=== PATIENT | male | born 1935 | race Caucasian/White ===

== ENCOUNTER 2018-03-12 12:33 | Inpatient (IN) ==
[2018-03-12] MEDS ORDERED: NS 1,000 ML IV ONE ×2 (13:18→13:51)
[2018-03-12] MEDS ORDERED: MORPHINE IV ONE ×2 (13:18→16:37)
[2018-03-12] MEDS ORDERED: ZOFRAN IV ONE (13:18)
[2018-03-12] MEDS ORDERED: ROCEPHIN 1 GM in NS 50 ML IV ONE (13:20)
--- NOTE | 2018-03-12 13:37 | Diag Imaging Result Doc PS360 ---
EXAM: CHEST-PORTABLE INDICATION: fever TECHNIQUE: One view COMPARISON: 06/08/2017 FINDINGS: Lung volumes are low. The lungs appear to be grossly clear. There is no discrete pleural fluid collection or pneumothorax. The cardiomediastinal silhouette and central vasculature are grossly unremarkable. IMPRESSION: Low lung volumes but no definite acute chest pathology, otherwise, by plain radiograph. Electronically signed by Shon Corona 03/12/2018 1:35 PM
[2018-03-12 13:40] LABS: BASO# 0.08 X1000 (0.0-0.2); BASO% 0.5 % (0.0-0.8); EOS# 0.03 X1000 (0.0-0.7); EOS% 0.2 % (0.0-10.0); HEMATOCRIT 41.6 % (42.0-52.0); HEMOGLOBIN 13.7 g/dL (14.0-18.0); IMM GRAN# 0.02 X1000 (0.0-0.04); IMM GRAN% 0.1 % (0.0-0.5); LYMPH# 0.49 X1000 (1.2-3.4); LYMPH% 2.8 % (20.5-51.1); MCH 29.8 PG (27-31); MCHC 32.9 g/dL (33-37); MCV 90.6 FL (81-99); MONO# 0.86 X1000 (0.11-0.59); MONO% 4.9 % (1.7-9.3); MPV 11.9 FL (7.4-10.4); NEUT# 15.98 X1000 (1.4-6.5); NEUT% 91.5 % (42.2-75.2); PLT 238 X1000 (130-400); RBC 4.59 XMIL (4.7-6.1); RDW 14.7 % (11.5-14.5); WBC 17.46 X1000 (4.8-10.8)
[2018-03-12 13:50] LABS: AGAP 16; ALB/GLOB RATIO 1.5; ALBUMIN 4.2 g/dL (3.5-5.0); ALKALINE PHOSPHATASE 105 U/L (32-122); BUN 17 mg/dL (8-22); CALCIUM 9.8 mg/dL (8.8-10.2); CHLORIDE 101 mmol/L (98-107); COSMO 290; CREATININE 1.1 mg/dL (0.7-1.2); ESTIMATED GFR > 60; GLUCOSE 168 mg/dL (70-104); GOT 38 U/L (10-34); GPT 25 U/L (10-44); POTASSIUM 4.2 mmol/L (3.5-5.1); SODIUM 143 mmol/L (136-145); TCO2 26 mmol/L (25-35); TOTAL BILIRUBIN 1.49 mg/dL (0.20-1.00)
[2018-03-12] MEDS ORDERED: MORPHINE ONE (14:47)
[2018-03-12 15:01] LABS: URINE SOURCE CLEAN CATCH
[2018-03-12 15:11] LABS: BILIRUBIN URINE NEGATIVE (NEGATIVE); BLOOD URINE NEGATIVE (NEGATIVE); COLOR YELLOW; GLUCOSE URINE TRACE mg/dL (NEGATIVE); KETONE URINE NEGATIVE (NEGATIVE); LEUKOCYTES URINE TRACE (NEGATIVE); NITRITE URINE NEGATIVE (NEGATIVE); PROTEIN URINE TRACE mg/dL (NEGATIVE); SP GRAVITY URINE 1.019; TURBIDITY URINE CLEAR (CLEAR); UR EPITHELIAL CELLS <10 /HPF (<10); URINE BACTERIA NEGATIVE /HPF; URINE RBC <10 /HPF (<10); URINE WBC <10 /HPF (<10); UROBILINOGEN URINE NORMAL (NORMAL)
[2018-03-12 15:14] LABS: INR 0.91
--- NOTE | 2018-03-12 15:18 | Diag Imaging Result Doc PS360 ---
EXAM: CT RENAL STONE SEARCH INDICATION: flank pain, fever, dysuria TECHNIQUE: This exam was performed using automated exposure control, adjustment of mA or kV according to patient size, and/or use of iterative reconstruction technique. COMPARISON: 10/23/2015 FINDINGS: There is a calcified granuloma in the right middle lobe. There is mild subsegmental atelectasis at the lung bases. There has been a previous cholecystectomy. The liver is grossly unremarkable. 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 There are stable metallic clips at the tail of pancreas. The pancreas appears atrophic. There are a few small shotty peripancreatic lymph nodes that are similar to the previous study. The adrenal glands are unremarkable. There is a stable simple left renal cyst. There are no renal or ureteral stones and there is no hydronephrosis. The kidneys are grossly unremarkable, otherwise. The urinary bladder appears normal as imaged. There are prostatic calcifications. There is advanced sigmoid colonic diverticulosis but there is no evidence of diverticulitis. There is abundant stool in the colon suggesting constipation. The appendix is normal. The remainder of the GI tract is essentially unremarkable. There are degenerative changes throughout the spine and at the left hip. IMPRESSION: 1.No renal or ureteral stones and no evidence of acute obstructive uropathy. 2.Uncomplicated diverticulosis coli. 3.Abundant stool throughout the colon suggesting possible constipation. 4.Other external/nonacute findings detailed above. Electronically signed by Shon Corona 03/12/2018 3:16 PM
[2018-03-12] MEDS ORDERED: LEVAQUIN 750 MG/D5W 750 MG/150 ML IVPB IV ONE (15:46)
[2018-03-12] MEDS ORDERED: FLAGYL 500 MG/NS 500 MG/100 ML IVPB IV ONE (15:54)
--- NOTE | 2018-03-12 16:00 | PROVIDER DOCUMENTATION ---
This chart was entered by Loyda Carmona Scribe, acting as scribe for Neto Price MD. HPI-General Adult - General Chief Complaint: General Adult Stated Complaint: WEAKNESS,LOWER ABD PAIN,SHAKING Time Seen by Provider: 03/12/18 13:08 Source: patient, family Allergies/Adverse Reactions: Patient Allergies Allergy/AdvReac Type Severity Reaction Status Date / Time Penicillins Allergy Intermediate RASH Verified 06/08/17 13:23 Sulfa (Sulfonamide Allergy Intermediate RASH Verified 06/08/17 13:23 Antibiotics) Home Medications: Home Medication List Medication Instructions Recorded Confirmed Last Taken Type Lisinopril 20 mg PO DAILY 12/01/15 10/17/17 10/16/17 08:00 History Metformin HCl [Glucophage] 500 mg PO BID 12/01/15 10/17/17 10/16/17 16:00 History Amlodipine Besylate 5 mg PO DAILY 10/13/17 10/17/17 10/16/17 08:00 History Tamsulosin [Flomax] 0.4 mg PO DAILY 10/13/17 10/17/17 10/16/17 08:00 History - History of Present Illness -Gen Adult Nature of Presenting Problems: 83 y/o male presents to ED with low abdominal pain, low back pain radiating to bilateral posterior thighs, chills, confusion, increased urination, sore throat , dysuria, groin pain, and weakness onset last night and worsening today. Pt also reports sinus issues for approximately 3 weeks. Son of pt is in room and states that he had similar symptoms with urosepsis previously. Pt reports his tremor has also worsened. Pt is alert and oriented. Location of Pain/Injury: reports: abdomen (low), back (low), other (urethral; groin) Pain Radiation: reports: legs (upper) (bilateral) Quality of Pain: reports: aching Severity: reports: moderate Onset/Duration: reports: last night, other (3 weeks ago) Timing: reports: still present, getting worse Context/Activities at Onset: reports: none Modifying Factors: worse with: palpation, urinating Associated Symptoms: reports: back/neck pain (low back), fever/chills, sinus congestion/drainage, weakness, other (low abdominal pain, bilateral posterior thigh pain, confusion, dysuria, increased urination, sore throat, groin pain, worsening tremor) Similar Symptoms Previously?: Yes (with urosepsis) Recently seen or treated by another doctor?: No Review of Systems - Adult - REVIEW OF SYSTEMS - ADULT Constitutional: reports: chills, other (confusion). denies: fever Eyes: reports: no symptoms reported Ears, Nose, Mouth & Throat: reports: sinus problem, throat pain Cardiovascular: denies: chest pain, palpitations Respiratory: denies: cough, shortness of breath Gastrointestinal: reports: abdominal pain (low). denies: diarrhea, nausea, vomiting Genitourinary: reports: dysuria, other (increased urination, groin pain) Musculoskeletal: reports: back pain (low), other (bilateral posterior thigh pain ) Integumentary: reports: no symptoms reported Neurological: reports: tremors (worsening), other (confusion, weakness). denies : dizziness/vertigo, seizure Psychiatric: reports: no symptoms reported Endocrine: reports: no symptoms reported Hematologic/Lymphatic: reports: no symptoms reported Allergic/Immunologic: reports: no symptoms reported All Other Systems: Reviewed and Negative Past History - Adult - PAST MEDICAL HISTORY-ADULT Review of Records: reports: Old Records Reviewed, Nursing Assessment Review, Medications Reviewed Major Childhood Illnesses: reports: denies history Cardiovascular: reports: HTN Respiratory: reports: denies history Gastrointestinal: reports: diverticulosis, other (pancreatic cancer) Obstetrical/Gynecological: reports: denies history Genitourinary: reports: denies history Musculoskeletal: reports: denies history Neurological: reports: denies history Psychiatric: reports: anxiety Endocrine/Immune: reports: Diabetes Other Conditions: reports: denies history, other cancer (skin) - PRIOR SURGERIES/PROCEDURES Surgical/Procedure History: reports: cholecystectomy, tonsillectomy, hernia repair - IMMUNIZATION STATUS Childhood Immunizations: See Nurse Assessment Flu Vaccine: See Nurse Assessment - FAMILY HISTORY Family History: reviewed, not pertinent - SOCIAL HISTORY Smoking: quit greater than 1 year Substance Use: none/never Alcohol Use Frequency: never Living Situation: family Physical Exam-General - PHYSICAL EXAM-ADULT Initial Vital Signs Reviewed: Yes - CONSTITUTIONAL General Appearance: appears well, alert, no apparent distress - EYES Eyes: PERRL/EOMI, pink conjunctivae - HEAD, EARS, NOSE, MOUTH & THROAT HENMT: normocephalic/atraumatic, moist mucous membranes, maxillary tenderness - NECK Neck: non-tender, full range of motion - RESPIRATORY Respiratory: chest non-tender, lungs clear, normal breath sounds - CARDIOVASCULAR Cardiovascular: tachycardia - GASTROINTESTINAL (ABDOMEN) Abdominal Exam: normal bowel sounds, non tender, soft - MUSCULOSKELETAL Back Exam: normal inspection, CVA tenderness (bilateral) Extremity: normal range of motion, non-tender, normal gait - SKIN Integumentary: normal color, warm/dry - NEUROLOGIC Neurologic: grossly normal, other (resting tremor) - PSYCHIATRIC Psych/Mental Status: normal mood/affect, normal thought content, normal thought process Progress - PLAN OF CARE/RESULTS Progress/Plan/Lab Results: Vital Signs - 8 hr 03/12/18 12:47 Temperature 99.2 F Pulse Rate 124 H Respiratory Rate 18 Blood Pressure 151/88 O2 Sat by Pulse Oximetry 96 Laboratory Results - last 24 hr 03/12/18 12:58 WBC 17.46 H RBC 4.59 L Hgb 13.7 L Hct 41.6 L MCV 90.6 MCH 29.8 MCHC 32.9 L RDW Std Deviation 14.7 H Plt Count 238 MPV 11.9 H Immature Gran % (Auto) 0.1 Neut % (Auto) 91.5 H Lymph % (Auto) 2.8 L [place] % (Auto) 4.9 Eos % (Auto) 0.2 Baso % (Auto) 0.5 Immature Gran # (Auto) 0.02 Neut # (Auto) 15.98 H Lymph # (Auto) 0.49 L [place] # (Auto) 0.86 H Eos # (Auto) 0.03 Baso # (Auto) 0.08 Orders Category Date Time Status CHEST-PORTABLE [RAD] Stat Exams 03/12/18 13:[address] RENAL STONE SEARCH [CT] Stat Exams 03/12/18 13:18 Ordered BLOOD CULTURE [BLDCUL] Stat Lab 03/12/18 13:16 Uncollected CBC WITH ELECTRONIC DIFF [HEME] Stat Lab 03/12/18 12:58 Completed COMPREHENSIVE METABOLIC PANEL [CHEM] Stat Lab 03/12/18 12:58 Received INFLUENZA SCREEN A/B Stat Lab 03/12/18 13:17 Uncollected MAGNESIUM [CHEM] Stat Lab 03/12/18 13:17 Uncollected PRO B-NATRIURETIC PEPTIDE Stat Lab 03/12/18 13:17 Uncollected PROTIME WITH INR [COAG] Stat Lab 03/12/18 13:17 Uncollected TROPONIN T Stat Lab 03/12/18 13:17 Uncollected TSH Stat Lab 03/12/18 13:17 Uncollected URINALYSIS W/POSS RFLX CULT [URINALYSIS] Stat Lab 03/12/18 13:17 Uncollected URINALYSIS [URINALYSIS] Stat Lab 03/12/18 12:52 Uncollected 0.9% Sodium Chloride Inj [Ns] 1,000 ml Med 03/12/18 13:18 Active IV 999 mls/hr CefTRIAXONE [Rocephin] 1 gm Med 03/12/18 13:20 Discontinued 0.9% Sodium Chloride Inj [Ns] 50 ml IV NOW Morphine Med 03/12/18 13:18 Discontinued 2 mg IV NOW ONE Ondansetron [Zofran] Med 03/12/18 13:18 Discontinued 4 mg IV NOW ONE Generalized Adult Illness >60 Stat Oth 03/12/18 12:51 Ordered EKG [EKG] Stat Ther 03/12/18 12:52 Ordered Laboratory Tests 03/12/18 03/12/18 12:58 12:58 WBC 17.46 H RBC 4.59 L Hgb 13.7 L Hct 41.6 L MCV 90.6 MCH 29.8 MCHC 32.9 L RDW Std Deviation 14.7 H Plt Count 238 MPV 11.9 H Immature Gran % (Auto) 0.1 Neut % (Auto) 91.5 H Lymph % (Auto) 2.8 L [place] % (Auto) 4.9 Eos % (Auto) 0.2 Baso % (Auto) 0.5 Immature Gran # (Auto) 0.02 Neut # (Auto) 15.98 H Lymph # (Auto) 0.49 L [place] # (Auto) 0.86 H Eos # (Auto) 0.03 Baso # (Auto) 0.08 Sodium 143 Potassium 4.2 Chloride 101 Carbon Dioxide 26 Anion Gap 16 BUN 17 Creatinine 1.1 Estimated GFR/1.73 m2 > 60 BUN/Creatinine Ratio 15 Glucose 168 H Calculated Osmolality 290 Calcium 9.8 Total Bilirubin 1.49 H AST 38 H ALT 25 Alkaline Phosphatase 105 Total Protein 7.0 Albumin 4.2 Globulin 2.8 Albumin/Globulin Ratio 1.5 Laboratory Tests 03/12/18 03/12/18 03/12/18 12:58 12:58 13:00 WBC 17.46 H RBC 4.59 L Hgb 13.7 L Hct 41.6 L MCV 90.6 MCH 29.8 MCHC 32.9 L RDW Std Deviation 14.7 H Plt Count 238 MPV 11.9 H Immature Gran % (Auto) 0.1 Neut % (Auto) 91.5 H Lymph % (Auto) 2.8 L [place] % (Auto) 4.9 Eos % (Auto) 0.2 Baso % (Auto) 0.5 Immature Gran # (Auto) 0.02 Neut # (Auto) 15.98 H Lymph # (Auto) 0.49 L [place] # (Auto) 0.86 H Eos # (Auto) 0.03 Baso # (Auto) 0.08 PT INR Sodium 143 Potassium 4.2 Chloride 101 Carbon Dioxide 26 Anion Gap 16 BUN 17 Creatinine 1.1 Estimated GFR/1.73 m2 > 60 BUN/Creatinine Ratio 15 Glucose 168 H Calculated Osmolality 290 Calcium 9.8 Magnesium Total Bilirubin 1.49 H AST 38 H ALT 25 Alkaline Phosphatase 105 Troponin T Pjy-N-Rgbsuxfdhlo Pept Total Protein 7.0 Albumin 4.2 Globulin 2.8 Albumin/Globulin Ratio 1.5 TSH Urine Source CLEAN CATCH Urine Color YELLOW Urine Turbidity CLEAR Urine pH 6.0 Ur Specific [place] 1.019 Urine Protein TRACE A Ur Glucose (Stick) TRACE Ur Ketones (Stick) NEGATIVE Urine Blood NEGATIVE Urine Nitrite NEGATIVE Urine Bilirubin NEGATIVE Urobilinogen Dipstick NORMAL Urine Leukocytes TRACE A Urine WBC (Auto) <10 Urine RBC (Auto) <10 U Epithel Cells (Auto) <10 Urine Bacteria (Auto) NEGATIVE 03/12/18 03/12/18 03/12/18 14:44 14:44 14:44 WBC RBC Hgb Hct MCV MCH MCHC RDW Std Deviation Plt Count MPV Immature Gran % (Auto) Neut % (Auto) Lymph % (Auto) [place] % (Auto) Eos % (Auto) Baso % (Auto) Immature Gran # (Auto) Neut # (Auto) Lymph # (Auto) [place] # (Auto) Eos # (Auto) Baso # (Auto) PT INR Sodium Potassium Chloride Carbon Dioxide Anion Gap BUN Creatinine Estimated GFR/1.73 m2 BUN/Creatinine Ratio Glucose Calculated Osmolality Calcium Magnesium 1.4 L Total Bilirubin AST ALT Alkaline Phosphatase Troponin T < 0.010 Xaq-S-Atvibjggmno Pept 70 Total Protein Albumin Globulin Albumin/Globulin Ratio TSH Urine Source Urine Color Urine Turbidity Urine pH Ur Specific [place] Urine Protein Ur Glucose (Stick) Ur Ketones (Stick) Urine Blood Urine Nitrite Urine Bilirubin Urobilinogen Dipstick Urine Leukocytes Urine WBC (Auto) Urine RBC (Auto) U Epithel Cells (Auto) Urine Bacteria (Auto) 03/12/18 03/12/18 14:44 14:44 WBC RBC Hgb Hct MCV MCH MCHC RDW Std Deviation Plt Count MPV Immature Gran % (Auto) Neut % (Auto) Lymph % (Auto) [place] % (Auto) Eos % (Auto) Baso % (Auto) Immature Gran # (Auto) Neut # (Auto) Lymph # (Auto) [place] # (Auto) Eos # (Auto) Baso # (Auto) PT 13.0 INR 0.91 Sodium Potassium Chloride Carbon Dioxide Anion Gap BUN Creatinine Estimated GFR/1.73 m2 BUN/Creatinine Ratio Glucose Calculated Osmolality Calcium Magnesium Total Bilirubin AST ALT Alkaline Phosphatase Troponin T Wot-E-Atbeewemnjp Pept Total Protein Albumin Globulin Albumin/Globulin Ratio TSH 1.22 Urine Source Urine Color Urine Turbidity Urine pH Ur Specific [place] Urine Protein Ur Glucose (Stick) Ur Ketones (Stick) Urine Blood Urine Nitrite Urine Bilirubin Urobilinogen Dipstick Urine Leukocytes Urine WBC (Auto) Urine RBC (Auto) U Epithel Cells (Auto) Urine Bacteria (Auto) Result Diagrams: 03/12/18 12:58 03/12/18 12:58 - REASSESSMENT Reassessment #1 Time Reassessed: 15:53 Status: improving (Patient states he feels a lot better. States he knew he had diverticulosis but ate a bunch of nuts 5 days ago.) Reassessment Comment: Although CT showed diverticulosis, there was no contrast , so will treat it - EKG 1 Time of EKG reading by physician:: 12:55 EKG Read and Signed by:: Neto Price EKG Interpretation (*Must complete 3 of following elements*): Abnormal Rate: 113 Rhythm: Sinus tach ST Wave: non-specific ST changes Comments: Early transition. Artifact present. -Dr. Price - XRAY 1 XRAY Study: Chest Impression: Abnormal (FINDINGS: Lung volumes are low. The lungs appear to be grossly clear. There is no discrete pleural fluid collection or pneumothorax. The cardiomediastinal silhouette and central vasculature are grossly unremarkable. IMPRESSION: Low lung volumes but no definite acute chest pathology, otherwise, by plain radiograph. Electronically signed by Shon Corona 03/12/2018 1:35 PM) - CT/MRI 1 CT Study: Renal Stone Impression: Abnormal (FINDINGS: There is a calcified granuloma in the right middle lobe. There is mild subsegmental atelectasis at the lung bases. There has been a previous cholecystectomy. The liver is grossly unremarkable. 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 There are stable metallic clips at the tail of pancreas. The pancreas appears atrophic. There are a few small shotty peripancreatic lymph nodes that are similar to the previous study. The adrenal glands are unremarkable. There is a stable simple left renal cyst. There are no renal or ureteral stones and there is no hydronephrosis. The kidneys are grossly unremarkable, otherwise. The urinary bladder appears normal as imaged. There are prostatic calcifications. There is advanced sigmoid colonic diverticulosis but there is no evidence of diverticulitis. There is abundant stool in the colon suggesting constipation. The appendix is normal. The remainder of the GI tract is essentially unremarkable. There are degenerative changes throughout the spine and at the left hip. IMPRESSION: 1.No renal or ureteral stones and no evidence of acute obstructive uropathy. 2.Uncomplicated diverticulosis coli. 3.Abundant stool throughout the colon suggesting possible constipation. 4.Other external/nonacute findings detailed above. Electronically signed by Shon Corona 03/12/2018 3:16 PM), See EMR Report - CONSULTS/PCP/HOSPITALIST Notification #1 *Consult/PCP/Hospitalist*: Gema Time Discussed: 15:59 Reason/Comments: Admit to [facility] Consult Disposition: Will see in ED Departure - Departure Date of Disposition Decision: 03/12/18 Time of Disposition Decision: 15:56 DIAGNOSIS: Diverticulitis large intestine w/o perforation or abscess w/o bleeding Sepsis Qualifiers: Sepsis type: sepsis due to unspecified organism Qualified Code(s): A41.9 - Sepsis, unspecified organism Disposition: ADMITTED INPATIENT 09 Certified Medical Emergency: Emergent Condition: Fair Referrals and Follow-Ups: Marcelle Moore MD [Primary Care Provider] - - Critical Care Note This patient required my direct & personal management of CC.: No Attestation - Physician/ NILAM Attestation Patient care was provided by Advanced Practice Provider:: No The physician spent face to face time with patient:: Yes Advanced Practice Provider documentation review:: Supervising physician onsite and consulted in the evaluation and care of this patient. The physician did have a face to face encounter with the patient. This chart was documented by the indicated scribe, (Loyda Carmona Scribe) and accurately reflects the services I performed and decisions made by me, Neto Price MD, as attested by the provider's signature.
[2018-03-12] MEDS ORDERED: ZOFRAN IV PRN (16:44)
[2018-03-12] MEDS ORDERED: DULCOLAX PR PRN (16:45)
[2018-03-12] MEDS ORDERED: DULCOLAX PR ONE (16:45)
[2018-03-12] MEDS ORDERED: LACTULOSE PO ONE (16:46)
[2018-03-12] MEDS: NS 1,000 ML IV SCH (17:49)
[2018-03-12] MEDS ORDERED: LEVAQUIN 750 MG/D5W 750 MG/150 ML IVPB IV SCH (18:00)
--- NOTE | 2018-03-12 18:31 | HISTORY AND PHYSICAL ---
DATE OF ADMISSION: 03/12/2018. PRIMARY CARE PHYSICIAN: Marcelle Moore MD. CHIEF COMPLAINT: Abdominal pain. HISTORY OF PRESENT ILLNESS: Mr. Merrick Gage Sr. is an [id number]- male with a medical history of pancreatic cyst with partial pancreatectomy, diabetes mellitus type 2 , diverticulosis, irritable bowel syndrome that alternates between constipation and diarrhea, and hypertension. States that he has lately been having some issues with constipation. His last bowel movement was yesterday. It was hard and small. Then this morning, around 10:00 a.m., he started having some really bad bilateral lower abdominal cramping that would radiate to his back and down his legs. He denied any nausea. He states that he felt like he has had a little bit of hot and cold sweats. Otherwise, no other complaints. We will admit to the medical floor and treat his intractable abdominal pain, his constipation and antibiotics for possible diverticulitis. Laboratory data reveals that he has leukocytosis with a white blood cell count of 17,000. A chest x-ray was clear. Urine was clear. Given the pain, there was a renal CT that was performed. There are no stones or evidence of obstructive uropathy. He does show some diverticulars coli and severe constipation. He is tachycardic as well. He does show some signs of sepsis. A lactate is not available at this time. PAST MEDICAL HISTORY: 1. Pancreatic cyst status post partial pancreatectomy. Apparently the biopsy of the partial pancreas was positive for precancerous cells that Dr. Colindres follows him for. No other chemotherapy or radiation has ever been used. 2. Diabetes mellitus type 2. 3. Hypertension. 4. Seasonal allergies with sinus congestion. 5. Irritable bowel syndrome with alternating between constipation and diarrhea. 6. History of diverticulitis. 7. Anxiety. 8. Anemia. PAST SURGICAL HISTORY: 1. Partial pancreectomy. 2. Splenectomy. 3. Umbilical hernia repair. 4. Skin cancer removal. 5. Cataract surgery. 6. Prostatectomy. 7. Left testicular mass removed and testicle removed which was benign. SOCIAL HISTORY: Denies tobacco, alcohol or illicit drug use. He lives at home with his . He has two daughters who are at the bedside. FAMILY HISTORY: On his mother's side, there was heart disease and diabetes. On the father's side, his father at age 50 of an MVA. He had a brother with stomach cancer and sister with leukemia, and another uncle with leukemia. ALLERGIES: SULFA AND PENICILLIN. HOME MEDICATIONS: Not verified yet, but it looks like: 1. Amlodipine. 2. Lisinopril. 3. Metformin. 4. Flomax. REVIEW OF SYSTEMS: 14 point review of systems was completed and all are negative except for those mentioned above in the HPI. PHYSICAL EXAM: VITAL SIGNS: Temperature 99.2, heart rate 124, respiratory rate 18, blood pressure 151/88 and O2 saturation 96% on room air. He is 5'5" tall and weighs 136 pounds with a BMI of 22.6. GENERAL: Mr. Merrick Gage is hard of hearing, but he is pleasant. He is resting comfortably in bed. HEENT: Normocephalic, atraumatic. Pupils are equal, round and reactive to light. Extraocular movements intact. Mucous membranes are dry. NECK: Trachea is midline. CARDIOVASCULAR: S1, S2. Regular rate and rhythm. No murmurs, rubs or gallops. No lower extremity edema. There are +2 dorsalis and radial pulses. Negative JVD or carotid bruits. PULMONARY: Clear to auscultate bilateral breath sounds. No accessory muscle use or work of breathing noted. GI: Soft. Tender in the left lower quadrant. Positive bowel sounds x4. EXTREMITIES: Moves all extremities equally. Full range of motion. NEUROLOGICAL: Alert and oriented x3. Follows commands. Sensory is intact. SKIN: Warm, dry and intact. LABORATORY DATA: WBC 17,000, hemoglobin 13, hematocrit 41, and platelet count 238. INR is 0.91. Sodium 143, potassium 4.2, BUN 17, creatinine 1.1, glucose 168, calcium 9.8, magnesium 1.4, bilirubin 1.49, AST 38, ALT 25, troponin less than 0.01, proBNP 70, albumin 4.2 , lipase 13, and TSH 1.22. Urinalysis shows trace protein, trace leukocytes. Otherwise negative. IMAGING: Chest x-ray is clear. Renal CT showed no renal or ureteral stones and no evidence of acute obstructive uropathy. Uncomplicated diverticulosis. Abundance of stool throughout the colon suggesting possible constipation. ASSESSMENT AND PLAN: 1. Abdominal pain. Likely secondary to constipation or diverticulitis. He will be on clear liquids. [place] for pain. He got a one time dose of morphine. 2. Leukocytosis with signs of sepsis. Lactate is not available. He is tachycardic. He did get 1 liter of IV fluids. Per imaging, he could possibly have diverticulitis, so he had one dose of Rocephin, but he is getting Flagyl and Levaquin scheduled. We will follow up on the lactate as well. 3. Constipation. We will do MiraLAX daily. We will give him a one time dose of Lactulose and one time dose of Bisacodyl suppository. We will start him on Brenda-Colace, 2 tablets twice daily. 4. Precancerous pancreatic cells of the sample of the pancreectomy that Dr. Colindres follows him for. No concerns at this time. 5. Diabetes mellitus type 2. We will do pattern blood glucose and sliding scale insulin. 6. Hypertension. Once home medications are verified, we will resume. 7. Deep vein thrombosis prophylaxis with SCDs. Dictated by ROSS Maddox for Vega Talbot MD cc: ROSS Maddox MD Marlin D. Gill, MD I have seen and examined patient today in the ER. Family members were present. I have reviewed his labs and imagining studies. Mr Gage present with abdomen pain, WBC is elevated abd CT scan shows diverticulosis but no inflammation. He has been treated for diverticulitis in the past. He is constipated. I agree with the above HPI and the plan reflects my opinion discussed with the RESTAURANT SERVICE MANAGER. MARK
[2018-03-12] MEDS: NORCO-7.5 PO PRN (18:50)
[2018-03-12] MEDS: PRILOSEC PO SCH (20:41)
[2018-03-12] MEDS: PERICOLACE PO SCH (20:42)
[2018-03-12] MEDS: HUMULIN R SUBQ SCH (21:40)
[2018-03-13] MEDS: FLAGYL 500 MG/NS 500 MG/100 ML IVPB IV SCH ×3 (00:32→13:49)
[2018-03-13] MEDS: NS 1,000 ML IV SCH ×4 (05:03→17:44)
[2018-03-13] MEDS: HUMULIN R SUBQ SCH ×4 (06:28→21:44)
[2018-03-13 06:50] LABS: BASO# 0.06 X1000 (0.0-0.2); BASO% 0.5 % (0.0-0.8); EOS# 0.04 X1000 (0.0-0.7); EOS% 0.3 % (0.0-10.0); HEMATOCRIT 36.8 % (42.0-52.0); IMM GRAN# 0.02 X1000 (0.0-0.04); IMM GRAN% 0.2 % (0.0-0.5); LYMPH# 0.88 X1000 (1.2-3.4); LYMPH% 7.3 % (20.5-51.1); MCH 29.9 PG (27-31); MCHC 32.6 g/dL (33-37); MCV 91.8 FL (81-99); MONO# 1.03 X1000 (0.11-0.59); MONO% 8.6 % (1.7-9.3); MPV 11.8 FL (7.4-10.4); NEUT# 9.95 X1000 (1.4-6.5); NEUT% 83.1 % (42.2-75.2); PLT 216 X1000 (130-400); RBC 4.01 XMIL (4.7-6.1); RDW 14.9 % (11.5-14.5); WBC 11.98 X1000 (4.8-10.8)
[2018-03-13 06:57] LABS: INR 1.18; PROTIME 15.9 Seconds (11.0-16.0)
[2018-03-13] MEDS: TYLENOL PO PRN ×2 (06:57→15:53)
[2018-03-13 06:58] LABS: PTT 36.6 Seconds (22.3-41.8)
--- NOTE | 2018-03-13 07:18 | EKG Report ---
Test Performed on : 03/12/2018 12:55:59 PM Test Reason : WEAKNESS Blood Pressure : / mmHG Vent. Rate : 113 BPM Atrial Rate : 113 BPM P-R Int : 144 ms QRS Dur : 070 ms QT Int : 320 ms P-R-T Axes : 046 -14 -10 degrees QTc Int : 438 ms Sinus tachycardia. Nonspecific ST and T wave abnormality Abnormal ECG When compared with ECG of 13-OCT-2017 13:52, Vent. rate has increased BY [address] now depressed in Inferior leads ST now depressed in Anterolateral leads Nonspecific T wave abnormality now evident in Inferior leads T wave inversion now evident in Anterior leads Unconfirmed Result
[2018-03-13 07:42] LABS: AGAP 11; ALB/GLOB RATIO 1.3; ALBUMIN 3.3 g/dL (3.5-5.0); ALKALINE PHOSPHATASE 85 U/L (32-122); BUN 12 mg/dL (8-22); CALCIUM 8.9 mg/dL (8.8-10.2); CHLORIDE 105 mmol/L (98-107); COSMO 285; ESTIMATED GFR > 60; GLUCOSE 130 mg/dL (70-104); GOT 55 U/L (10-34); GPT 42 U/L (10-44); MAGNESIUM 1.5 mg/dL (1.5-2.7); POTASSIUM 4.2 mmol/L (3.5-5.1); SODIUM 142 mmol/L (136-145); TCO2 26 mmol/L (25-35); TOTAL BILIRUBIN 1.27 mg/dL (0.20-1.00); TOTAL PROTEIN 5.9 g/dL (6.3-8.3)
--- NOTE | 2018-03-13 08:43 | Diag Imaging Result Doc PS360 ---
EXAM: US ABDOMEN-COMPLETE 03/13/2018 HISTORY: abd pain TECHNIQUE: Abdominal ultrasound COMMENT: The visualized portions of the aorta and inferior vena cava are within normal limits. There is antegrade flow in the portal vein. Common bile duct measures less than 7 mm. The liver is slightly hyperechoic. There is a cyst arising from the mid left kidney measuring 4.3 cm in greatest dimension. There is no evidence of hydronephrosis. The gallbladder surgically absent. The pancreas is not identifiable and by history there has been partial pancreatectomy. The spleen is surgically absent. There are no abnormal fluid collections. IMPRESSION: Mild hepatic steatosis. Left renal cyst. Electronically signed by Luis Tate 03/13/2018 8:41 AM
[2018-03-13] MEDS: MIRALAX PO SCH (09:43)
[2018-03-13] MEDS: PRILOSEC PO SCH ×2 (09:43→21:44)
[2018-03-13] MEDS: PERICOLACE PO SCH ×2 (09:43→21:44)
--- NOTE | 2018-03-13 15:44 | PROGRESS NOTE ---
DATE: 03/13/2018 SUBJECTIVE: This morning Mr. Gage refers to be doing a whole lot better. Abdominal pain is improved. The patient has had a bowel movement yesterday. There is also some another one documented for this morning. He said he feels a whole lot better. OBJECTIVE: Vital Signs: Blood pressure is 134/65, pulse is 66, respirations 14, temperature is 98.2. General: Mr. Gage is an 83-year-old gentleman. He is in bed. He is not in any cardiopulmonary distress. HEENT: Mucosa is pink and moist. Anicteric. Acyanotic. Neck: Supple. Chest: Clear to auscultation. No crepitations. No rhonchi. Cardiovascular: Regular rate and rhythm. Abdomen: Soft, nontender. There was not any hepatosplenomegaly. Bowel sounds were present. Extremities: No pedal edema. Central Nervous System: Patient is awake, alert and oriented. LABORATORY DATA: WBC is down to 11.98, hemoglobin is 12.0, platelet count of 216,000. Chemistry is also reviewed, completely normal. ASSESSMENT: 1. Abdominal pain associated with elevated WBC. A CT scan did show diverticulosis. There is a concern for possible diverticulitis that has not been picked up. The patient was started on antibiotics, seems to be improving very well this morning. We are going to continue with the current management. We will get the patient a GI soft diet and see if he is able to tolerate. I will continue with bowel regimen. 2. Constipation. This could as well be causing some of his admission abdominal pain. He is currently on bowel regimen. He has had two bowel movements. He is feeling a lot better. We will start him on a GI soft diet and see if he is able to tolerate this. 3. Diabetes mellitus type 2, stable. 4. Hypertension, controlled. 5. Clinical volume depletion. The patient has been fully resuscitated with fluid. The patient has been on IV fluids, has been resuscitated very well. I will cut down the fluids to only 85 mL/h for maintenance. PLAN: So, in general, I feel Mr. Gage is doing a lot better. I think he has probably had constipation with reactive leukocytosis. However, underlying diverticulitis is a highly possibility. He is going to continue with the current antibiotic coverage. I put him on GI soft diet. If he is able to tolerate, we will be able to discharge him tomorrow. cc: Vega Talbot MD
[2018-03-13] MEDS: DEBROX OTIC DROPS RIGHT EAR SCH ×3 (15:53→21:47)
[2018-03-13] MEDS: LEVAQUIN 750 MG/D5W 750 MG/150 ML IVPB IV SCH ×3 (18:07→21:47)
[2018-03-13] MEDS: CLARITIN PO SCH (21:44)
[2018-03-14] MEDS: FLAGYL 500 MG/NS 500 MG/100 ML IVPB IV SCH ×3 (00:43→15:05)
[2018-03-14 06:52] LABS: BASO# 0.08 X1000 (0.0-0.2); BASO% 0.9 % (0.0-0.8); EOS# 0.33 X1000 (0.0-0.7); EOS% 3.7 % (0.0-10.0); HEMATOCRIT 37.5 % (42.0-52.0); HEMOGLOBIN 12.3 g/dL (14.0-18.0); LYMPH# 1.27 X1000 (1.2-3.4); LYMPH% 14.2 % (20.5-51.1); MCH 29.9 PG (27-31); MCHC 32.8 g/dL (33-37); MONO# 1.52 X1000 (0.11-0.59); MPV 11.5 FL (7.4-10.4); NEUT# 5.76 X1000 (1.4-6.5); NEUT% 64.2 % (42.2-75.2); PLT 203 X1000 (130-400); RBC 4.12 XMIL (4.7-6.1); RDW 14.8 % (11.5-14.5); WBC 8.96 X1000 (4.8-10.8)
[2018-03-14 07:11] LABS: AGAP 10; BUN 11 mg/dL (8-22); CHLORIDE 104 mmol/L (98-107); COSMO 279; ESTIMATED GFR > 60; GLUCOSE 97 mg/dL (70-104); POTASSIUM 3.7 mmol/L (3.5-5.1); SODIUM 140 mmol/L (136-145); TCO2 26 mmol/L (25-35)
--- NOTE | 2018-03-14 08:55 | Diag Imaging Result Doc PS360 ---
EXAM: KUB ABDOMEN HISTORY: SBO TECHNIQUE: Abdomen single view COMPARISON: None. FINDINGS: No bowel obstruction although there is stool in the proximal colon. The bowel loops are not dilated. There are surgical clips in the upper left abdomen. No organomegaly. No abnormal abdominal calcifications. IMPRESSION: Mild constipation. Electronically signed by Sergo Ibarra 03/14/2018 8:53 AM
[2018-03-14] MEDS: PRILOSEC PO SCH ×2 (09:16→21:42)
[2018-03-14] MEDS: DEBROX OTIC DROPS RIGHT EAR SCH ×3 (09:17→21:51)
[2018-03-14] MEDS: PERICOLACE PO SCH ×2 (09:17→21:41)
[2018-03-14] MEDS: MIRALAX PO SCH (09:17)
[2018-03-14] MEDS: NS 1,000 ML IV SCH ×2 (09:20→13:45)
[2018-03-14] MEDS: NORCO-7.5 PO PRN (10:59)
[2018-03-14] MEDS: HUMULIN R SUBQ SCH ×3 (11:01→21:42)
[2018-03-14] MEDS: LACTULOSE PO SCH ×2 (13:47→21:42)
--- NOTE | 2018-03-14 20:59 | PROGRESS NOTE ---
DATE: 03/14/2018 Today Mr. Gage referred to be doing better however he still remained with some left side lateral abdominal pain. Son was at the bedside at the time of the encounter. OBJECTIVE: Vitals: Blood pressure was 133/66, pulse is 74, respiration is 16, temperature is 98.8 degrees. General: Ms. Gage 83-year-old male he was in bed, he did not seem to be in any cardiopulmonary distress. Mucosa was pink and moist. Anicteric. Acyanotic. Neck: Supple. Respiratory: There was a good air entry bilaterally. No crepitations. No rhonchi. Cardiovascular: Regular rate and rhythm. No murmurs, no rubs, no gallops. Abdomen: Was soft. There is some tenderness minimally to the lower abdomen. There was no rebound, no guarding. No hepatosplenomegaly and bowel sounds were present. Extremities: No pedal edema. Distal pulses were present. : Was unremarkable. 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 There was no focal neurological deficit. LABORATORY DATA: WBC was 8.96, hemoglobin is 12.3, platelet count of 203,000. Chemistry is also reviewed which was completely normal. Patient I's and O's, no stool has been documented today. CURRENT MEDICATIONS: 1. Dulcolax p.r.n. 2. Lactulose p.r.n. Levaquin 750 q.24 hours. Claritin. 1. Metronidazole. 2. Omeprazole 40 mg b.i.d. 3. MiraLAX. 4. Brenda-Colace. 5. Normal saline at 85 mL/h. ASSESSMENT: 1. Abdominal pain associated with elevated WBC, CT scan shows a lot of diverticulosis however there was no evidence of diverticulitis. Patient white cell count has improved on antibiotics. I think there could be diverticulitis that has really not been picked up. Will continue with the current antibiotic regimen. 2. Constipation, patient is improving. He did have some bowel movement yesterday. There have not been any today, we have added lactulose to help with his bowel movement. 3. Diabetes mellitus controlled. 4. Hypertension stable. 5. Clinical volume depletion improved. 6. Sinusitis with sinus congestion, patient is getting Claritin. In general Mr. Gage seems to be doing a whole lot better. No chills, no fever. Abdominal pain is improved but is still there. A KUB this morning shows some improvement but there is still some mild constipation. I think most of his pain is probably all related with constipation however an underlying diverticulitis is highly possible in this patient with a lot of diverticulosis who presented with elevated white cell count. He is getting IV antibiotics. He is feeling better. I think if his bowel movement gets better tomorrow will be able to discharge him. cc: Vega Talbot MD MTDD
[2018-03-14] MEDS: CLARITIN PO SCH (21:42)
[2018-03-14] MEDS: LEVAQUIN 750 MG/D5W 750 MG/150 ML IVPB IV SCH (21:50)
[2018-03-15] MEDS: FLAGYL 500 MG/NS 500 MG/100 ML IVPB IV SCH ×2 (00:11→09:13)
[2018-03-15] MEDS: NS 1,000 ML IV SCH (00:13)
[2018-03-15] MEDS: HUMULIN R SUBQ SCH ×2 (06:45→11:42)
--- NOTE | 2018-03-15 07:17 | Diag Imaging Result Doc PS360 ---
EXAM: KUB ABDOMEN INDICATION: SBO TECHNIQUE: One view COMPARISON: 03/14/2018 FINDINGS: There is stable nonspecific bowel gas and stool patterns. No definite obstructive pattern is identified by plain radiograph. There is no evidence of large volume free abdominal gas. The abdomen is stable, otherwise. IMPRESSION: Nonspecific abdomen. Electronically signed by Shon Corona 03/15/2018 7:14 AM
[2018-03-15] MEDS: PRILOSEC PO SCH (09:16)
[2018-03-15] MEDS: LACTULOSE PO SCH (09:16)
[2018-03-15] MEDS: MIRALAX PO SCH (09:17)
[2018-03-15] MEDS: PERICOLACE PO SCH (09:17)
[2018-03-15] MEDS: DEBROX OTIC DROPS RIGHT EAR SCH (09:22)
[2018-03-15 13:23] VITALS: BP 169/72
--- NOTE | 2018-03-16 08:09 | DISCHARGE SUMMARY ---
ADMISSION DATE: 03/12/2018 DISCHARGE DATE: 03/15/2018 DISPOSITION: Home. FOLLOWUP: 1. Dr. Marcelle Moore. 2. Dr. Sullivan. CONSULTATION DURING THIS ADMISSION: None. IMAGING STUDIES OF SIGNIFICANCE: 1. A chest x-ray was done which showed no pathology. 2. A renal CT scan for stone search protocol was negative for stones. However, it did show uncomplicated diverticulosis. There was also abundant stool throughout the colon suggestive of constipation. 3. Multiple KUBs were done which showed improvement. ADMISSION DIAGNOSES: 1. Abdominal pain. 2. Leukocytosis with signs of sepsis. 3. Constipation. 4. Diabetes mellitus. DIAGNOSES AT THE TIME OF DISCHARGE: 1. Abdominal pain associated with elevated white blood cells on presentation. A CT scan shows a lot of diverticulosis. No evidence of diverticulitis. However, there was concern for possible inflammation that was not picked up on imaging studies. The patient was treated with antibiotics and he got better. 2. Constipation, improved with bowel regimen. 3. Diabetes mellitus. 4. Hypertension. 5. Clinical volume depletion, improved. 6. Sinusitis with sinus congestion, improved. DISCHARGE MEDICATIONS: 1. Lisinopril 20 mg daily. 2. Metformin 500 b.i.d. 3. Amlodipine 5 mg daily. 4. Tamsulosin 0.4 p.o. daily. 5. Levofloxacin 250 p.o. daily. 6. Metronidazole 250 three times per day. 7. Omeprazole 40 mg b.i.d. 8. MiraLAX 17 g p.o. daily. 9. Brenda-Colace 2 tablets b.i.d. PRESENTING COMPLAINT: Abdominal pain. HISTORY OF PRESENTING COMPLAINT: Mr. Gage is an 83-year-old, male who is known to have a pancreatic cyst, status post partial pancreatectomy, diabetes mellitus, and diverticulosis. He came to the emergency department because of abdominal pain. Upon the workup, was found to have an elevated white cell count. A CT scan did show numerous diverticulosis. However, there was not any diverticulitis. However, because of the elevated white cell count and the fact that the patient was in intractable pain, he was subsequently admitted for further medical care. HOSPITAL COURSE: Mr. Gage was admitted to the medical floor. He was adequately hydrated with IV fluids. He was kept initially NPO and was started on IV antibiotics. Overnight, he did improve and he was transitioned to clears and advanced his diet. His abdominal pain improved. He was also started on a bowel regimen and he was able to do multiple bowel movements here in the hospital. Subsequent KUB showed some improvement. Today, he refers to be doing a lot better. He does not have any more pain. His vitals, blood pressure is 169/72, pulse is 70, respirations are 21, temperature is 98.2 degrees. I have also reviewed his laboratory data. From yesterday, his WBC has normalized from 17.46 on admission to 8.96. All the rest of cell counts are normal. This morning, Mr. Gage's abdominal exam was completely normal and he was able to tolerate 100% of his breakfast. He is, therefore, in stable condition for discharge. He has been advised to follow up with his primary care doctor as well as his GI doctor, Dr. Sullivan. All the discharge instructions have been discussed with him. Time spent for discharge is 36 minutes. cc: MD Marcelle Vázquez MD Babu Kantamneni, MD
== END 2018-03-15 13:17 | disposition home or self-care (01) | DRG 872 ==
LOC: ED 12:33 → 4N 17:12
PROVIDERS: ATTEND Internal Medicine
CPT/HCPCS: 71010; 71045; 74000; 74018; 74176; 76700; 80048; 80053; 81001; 82948; 83605; 83690; 83735; 83880; 84443; 84484; 85025; 85610; 85730; 87040; 87081; 87088; 87275; 87276; 87430; 87804; 93005; 96361; 96365; 96375; 97161; 99285; A9270; J0696; J1956; J2270; J2405; J7030; S0030; XXXXX